=== PATIENT | male | born 1940 | race Caucasian/White ===

== ENCOUNTER 2021-11-18 18:42 | Emergency (ER) | payer OTHER, MEDICAID ==
[~2021-11-18] VITALS: Ht 177.8 cm; Wt 113.4 kg
[2021-11-18 19:19] VITALS: BP_SYST 172
--- NOTE | 2021-11-18 19:20 | NUR ---
PT ON [facility]ULANCE [facility].
--- NOTE | 2021-11-18 20:10 | NUR ---
ER at bedside examining patient.
--- NOTE | 2021-11-18 21:19 | NUR ---
Patient to ER bed 6 to gown for evaluation. Side rails up. Report given to ERI MAY.
[2021-11-18] MEDS ORDERED: MORPHINE 4 MG INJ. 4 MG/ML VIAL IM ONE (21:30)
[2021-11-18] MEDS ORDERED: DIPHTH,PERTUSS(ACELL),TET VAC 0.5 ML VIAL (Tdap) I.M. ONE (21:45)
--- NOTE | 2021-11-18 22:23 | NUR ---
SPLINT APPLIED BY EMT
--- NOTE | 2021-11-18 23:00 | NUR ---
at bedside, did not want pt to receive morphine.
--- NOTE | 2021-11-18 23:05 | NUR ---
COVID swab taken to lab at 11:08.
--- NOTE | 2021-11-18 23:41 | NUR ---
PROVIDED PT WITH TURKEY SANDWICH AND APPLESAUCE
--- NOTE | 2021-11-19 00:30 | NUR ---
Patient resting quietly. No acute distress noted. Vital signs within normal range.
--- NOTE | 2021-11-19 01:06 | NUR ---
Patient resting quietly. No acute distress noted. Vital signs within normal range.
--- NOTE | 2021-11-19 01:10 | NUR ---
Patient sleeping in bed with side rails raised. Nad noted at this time.
--- NOTE | 2021-11-19 01:32 | NUR ---
SPOKE TO [facility]EARCH ASST IN REGARDS TO TRANSPORTING PT TO ANOTHER FACILITY FOR CONTINUITY OF CARE.
--- NOTE | 2021-11-19 02:54 | NUR ---
PT PROVIDED URINAL UPON REQUEST
--- NOTE | 2021-11-19 03:36 | NUR ---
Patient resting quietly. No acute distress noted. Vital signs within normal range.
--- NOTE | 2021-11-19 04:27 | NUR ---
Patient resting quietly. No acute distress noted. Vital signs within normal range.
--- NOTE | 2021-11-19 05:20 | NUR ---
Pt repositioned for comfort and provided apple juice.
[2021-11-19] MEDS ORDERED: MORPHINE 4 MG INJ. 4 MG/ML VIAL IVP ONE ×2 (05:45→15:15)
[2021-11-19] MEDS ORDERED: ONDANSETRON HCL 4 MG/2 ML VIAL IVP ONE (05:45)
--- NOTE | 2021-11-19 06:25 | NUR ---
SPOKE TO [facility]. STATED THEY WILL PROCEED WITH TRANSFER, BUT AWAITING BED PLACEMENT AND WILL CALL BACK SOON BED IS AVAILABLE.
--- NOTE | 2021-11-19 07:30 | NUR ---
NEGRA FROM [facility] CALLED AND UPDATED THAT SHE PUT PT ON WILL CALL WITH [facility] FOR TRANSPORT. STILL AWAITING BED PLACEMENT. [facility] #: [phone]
--- NOTE | 2021-11-19 07:30 | NUR ---
RECEIVED PT FROM NOC SHIFT RN. PT HERE FOR FX OF LEFT LEG. PT'S LEG ELEVATED. VSS. AAOX4. RESP E/U. ON R/A. DENIES N/V. PT MADE AWARE [facility] HAS ACCEPTED HIM FOR TRANSFER AND WILL CALL FACILITY WITH BED NUMBER ONCE IT IS AVAILABLE. SIDERAILS UP X2. BED IN LOWEST POSITION.
--- NOTE | 2021-11-19 09:16 | NUR ---
TRANSFER INFO [facility] RM: 490B ACCEPTING: Rafat DUGGAN REPORT: [phone] SPOKE TO [facility] *WILL CALL [facility] TO ACTIVATE CALL FOR TRANSPORT.*
--- NOTE | 2021-11-19 09:38 | NUR ---
AUTH FOR TRANSPORT W/ [facility] AUTH #: [id number]
--- NOTE | 2021-11-19 11:21 | NUR ---
CALLED XIMENA CHIANG NEWS CLERK, REGARDING AMBULANCE TRANSPORT AND TRIP RIDER, DAVE. STATED THAT SHE WILL CALL DAVE AND SEE WHAT CAN BE DONE REGARDING TRANSPORT.
--- NOTE | 2021-11-19 14:49 | NUR ---
ATTEMPTED TO CALL AND INQUIRE IF PT CAN BE ADMITTED INSTEAD OF TRANSFERRED DUE TO DELAY OF CARE AND UNABLE TO FIND TRANSPORT WITH AUTHORIZED AMBULANCE VENDOR UNTIL TOMORROW WITH NO GUARANTEE. NO ANSWER WILL CALL BACK. DAVE [phone]
--- NOTE | 2021-11-19 15:37 | NUR ---
CALLING АНДРЕЙ, TACTICAL/MOBILE WATCH OFFICER, FOR STATUS UPDATE ON TRANSFER AFTER SHE SPOKE TO DAVE, [facility] QUALITY ASSURANCE/R&D LAB TECHNICIAN. DAVE STATED TO АНДРЕЙ THAT [facility] IS THE ONLY VENDOR THEY GO THROUGH. АНДРЕЙ, TACTICAL/MOBILE WATCH OFFICER, STATED [facility] IS BUYING PROMED AND TO ATTEMPT THESE VENDORS: [facility] - [phone] [facility] - [phone] [facility] - [phone] [facility] [phone]
--- NOTE | 2021-11-19 19:30 | NUR ---
Pt report received. Pt AAOx3, denies c/o pain or discomfort. VSS, NAD. Spint to LLE with cap refil <3 sec to toe nail beds. Strong bilat pedal pulses. No needs verbalized at this time. Awaiting transport to [facility].
--- NOTE | 2021-11-19 19:42 | NUR ---
PT TO TRANSFER TO [facility] ROOM 490B TO BE FOLLOWED BY DR. CHIVO Douglass CALLED AND GAVE REPORT TO YADIRA AARON. MADE HER AWARE THAT PT IS TO TRANSFER BY AMBULANCE AT 2030. YADIRA CURTIS MADE AWARE THAT REPORT HAS BEEN GIVEN.
--- NOTE | 2021-11-19 21:40 | NUR ---
Pt resting quietly, easily awakened. SPO2 88% RA. Pt placed on O2 at 2 LPM/NC and SPO2 improves to 93%, respirations even and non-labored. Pt denies c/o discomfort and no needs verbalized at this time.
--- NOTE | 2021-11-19 22:24 | NUR ---
Note undone in EDM - 11/19/21 at 2336 by BERT Patient to be transferred to [facility]. Is being transferred due to higher level of care. Receiving facility has accepting physician and available space. ER physician has signed transfer form. Patient or responsible democrat has agreed to transfer and signed form. Patient belongings inventoried and will be sent with patient. Copy of nursing notes, lab reports, EKG, Physicians Orders and X-rays to be sent with patient. Report called to YADIRA Jaimes at receiving facility. Receiving physician is Rafat [facility] ambulance service has been called for transfer. ETA is 2230.
[2021-11-19 23:30] VITALS: BP_SYST 127
--- NOTE | 2021-11-19 23:36 | NUR ---
Patient to be transferred to [facility]. Is being transferred due to higher level of care. Receiving facility has accepting physician and available space. ER physician has signed transfer form. Patient or responsible green party has agreed to transfer and signed form. Patient belongings inventoried and will be sent with patient. Copy of nursing notes, lab reports, EKG, Physicians Orders and X-rays to be sent with patient. Report called to YADIRA Jiames at receiving facility. Receiving physician is Bryson [facility]. [facility] has been called for transfer. Pt leaves via stretcher in stable condition.
== END 2021-11-19 23:22 | disposition short-term general hospital (02) ==
LOC: SED 18:42
DX: S82.302A Unspecified fracture of lower end of left tibia, initial encounter for closed fracture (principal); S82.402A Unspecified fracture of shaft of left fibula, initial encounter for closed fracture; E11.9 Type 2 diabetes mellitus without complications; Z79.899 Other long term (current) drug therapy; Z20.822 Contact with and (suspected) exposure to COVID-19; V03.131A Pedestrian on standing electric scooter injured in collision with car, pick-up or van in traffic accident, initial encounter; Y93.89 Activity, other specified; Y92.89 Other specified places as the place of occurrence of the external cause; Y99.8 Other external cause status
CPT/HCPCS: 99285; 70450; 29515; 87426; 36415; 73590; 73610; 72125; 76376; 96374; 96375; 96376; J2405; J2270; 90715